=== PATIENT | female | born 1950 | race Caucasian/White ===

== ENCOUNTER 2017-06-28 13:47 | Inpatient (IN) | payer MEDICARE ==
[~2017-06-28] VITALS: Ht 157.5 cm; Wt 96.2 kg
[~2017-06-28 13:47] MED LIST: ASPIRIN EC325 MG PO; CATAPRES0.1 MG PO; COREG25 MG PO; FOLIC ACID1 MG PO; GLUCOPHAGE XR500 MG PO; HYDRALAZINE HCL25 MG PO; HYDROCHLOROTHIA25 MG PO; IPRATR-ALBUTEROL3 ML NEB; JANUVIA100 MG PO; KLONOPIN1 MG PO; LEVAQUIN750 MG PO; LISINOPRIL40 MG PO; LORTAB 10-3251 EACH PO; PLAVIX75 MG PO; REVATIO20 MG PO; SYNTHROID50 MCG PO; ZANTAC300 MG PO
--- NOTE | 2017-06-29 03:58 | NUR ---
06/28/2017 @ 2330 C/O unable to sleep. Restoril po given for sleep. 06/29/2017 @ 0030 Sleeping
--- NOTE | 2017-06-30 11:43 | NUR ---
0730- HERE TO SEE AND ASSESS PT AT THIS TIME. UPDATED ON PT CONDITION. PT MAY BE TRANSFERRED TO [facility]. N/O'S NOTED
--- NOTE | 2017-06-30 17:41 | NUR ---
1715-PT TO TRANSFER TO ROOM [facility]. REPORT GIVEN TO Clark ANN RN. PT ESCORTED VIA WC, O2 AND STAFF TO [facility] AT THIS TIME. AT BEDSIDE
--- NOTE | 2017-06-30 18:11 | NUR ---
1715 PATIENT TO ROOM 308 FROM ICU VIA WHEELCHAIR AFTER GETTING REPORT FROM SUKH TORREZ . PATIENT ALERT AND ORIENTED X 3 SITTING UP ON THE SIDE OF THE BED. PATIENT ON 2L NC O2.
== END 2017-07-01 14:41 | disposition home or self-care (01) | DRG 189 ==
LOC: ER 13:47 → ICU 16:44 → MED 06-30 17:16
PROVIDERS: ADMIT Internal Medicine
PROC: 3E0234Z Introduction of Serum, Toxoid and Vaccine into Muscle, Percutaneous Approach (ICD-10-PCS; principal; 2017-07-01)
DX: J96.22 Acute and chronic respiratory failure with hypercapnia (principal); J44.1 Chronic obstructive pulmonary disease with (acute) exacerbation; N17.9 Acute kidney failure, unspecified; N39.0 Urinary tract infection, site not specified; I69.354 Hemiplegia and hemiparesis following cerebral infarction affecting left non-dominant side; I10 Essential (primary) hypertension; E11.65 Type 2 diabetes mellitus with hyperglycemia; E87.5 Hyperkalemia; E03.9 Hypothyroidism, unspecified; B96.20 Unspecified Escherichia coli [E. coli] as the cause of diseases classified elsewhere; B96.1 Klebsiella pneumoniae [K. pneumoniae] as the cause of diseases classified elsewhere; Z99.81 Dependence on supplemental oxygen; G47.33 Obstructive sleep apnea (adult) (pediatric); Z87.891 Personal history of nicotine dependence; R41.82 Altered mental status, unspecified; I27.2 Other secondary pulmonary hypertension; I25.10 Atherosclerotic heart disease of native coronary artery without angina pectoris; Z95.5 Presence of coronary angioplasty implant and graft; M06.9 Rheumatoid arthritis, unspecified; Z87.442 Personal history of urinary calculi; Z79.82 Long term (current) use of aspirin; Z79.84 Long term (current) use of oral hypoglycemic drugs; Z79.02 Long term (current) use of antithrombotics/antiplatelets; Z79.899 Other long term (current) drug therapy; Z88.5 Allergy status to narcotic agent; Z90.710 Acquired absence of both cervix and uterus; Z90.49 Acquired absence of other specified parts of digestive tract; Z83.3 Family history of diabetes mellitus; Z23 Encounter for immunization
CPT/HCPCS: 36415; 80307; 90686; 92611; 97161-GP; 97166; J1650